=== PATIENT | male | born 2000 | race Caucasian/White ===

== ENCOUNTER 2021-06-02 21:00 | Emergency (ER) | payer SELFPAY ==
[2021-06-02] MEDS ORDERED: Bacitracin 1 PK ONE (21:17)
== END 2021-06-02 21:47 | disposition home or self-care (01) ==
LOC: ERS 21:00
DX: S01.01XA Laceration without foreign body of scalp, initial encounter (principal); W22.8XXA Striking against or struck by other objects, initial encounter
CPT/HCPCS: 12001